=== PATIENT | male | born 1985 | race American Indian/Alaskan Native ===

== ENCOUNTER 2017-11-06 01:46 | Emergency (ER) | payer OTHER ==
[2017-11-06 02:44] LABS: Hemoglobin 11.8 gm/dl (11.8-15.2); Mean Corpuscular HGB Conc 35 % (32-34); Mean Corpuscular Hemoglobin 30 pg (28-32); Mean Corpuscular Volume 86 fl (84-94); Platelet Count 445 K/mm3 (140-440); Red Blood Count 3.93 M/mm3 (3.65-5.03); Red Cell Distribution Width 17.4 % (13.2-15.2)
[2017-11-06 02:53] LABS: Basophils # (Auto) 0.1 K/mm3 (0.0-0.1); Eosinophils # (Auto) 0.6 K/mm3 (0.0-0.4); Eosinophils % (Auto) 4.1 % (0.0-4.3); Monocytes # (Auto) 1.7 K/mm3 (0.0-0.8); Monocytes % (Auto) 11.3 % (0.0-7.3)
[2017-11-06 03:16] LABS: Lymphocytes # (Auto) 1.5 K/mm3 (1.2-5.4)
--- NOTE | 2017-11-06 06:58 | Emergency Department Report ---
HPI - General Chief Complaint: Sickle Cell Crisis Time Seen by Provider: 11/06/17 06:56 - HPI HPI: 5-year-old man with history of sickle cell disease, presents with generalized pain over the past 2 days, typical of his sickle cell disease with onset in the middle of the night between Sunday and Sunday morning, waking patient with discomfort.. There has not been any fever, and he has generalized pain, but his primary area of discomfort is in the right leg, mid abdomen, and central chest. He's had some coughing, no production of sputum, no fever, no dysuria. He gets sickle cell attacks infrequently, last significant episode was last year , but he did not seek treatment in the emergency department. His last emergency department visit here was 2 years ago. Patient's recent activities included a social gathering with friends for [employer] 2 days ago, and he ate barbecue, and had a couple of beers, but this has not been unusual for him, and is tolerating this without instigating attacks previously, though chart review shows that he had similar activity with his last emergency department episode. ED Past Medical Hx - Past Medical History Previous Medical History?: Yes Hx Sickle Cell Disease: Yes (?SC?) - Surgical History Past Surgical History?: No Additional Surgical History: Ankle surgery - Social History Smoking Status: Current Every Day Smoker Substance Use Type: None - Medications Home Medications: Home Medications Medication Instructions Recorded Confirmed Last Taken Type Famotidine [Pepcid] 20 mg PO DAILY #30 tablet 08/17/15 Unknown Rx HYDROcodone/APAP 10-325 [Hedley 1 each PO Q8HR PRN #20 tablet 08/17/15 Unknown Rx 10/325] Metoclopramide [Reglan] 10 mg PO TID PRN #20 tab 08/17/15 Unknown Rx HYDROcodone/APAP 10-325 [Hedley 1 each PO Q6HR PRN #30 tablet 11/06/17 Unknown Rx 10/325] Ondansetron [Zofran ODT TAB] 8 mg PO Q8HR PRN #10 tab.rapdis 11/06/17 Unknown Rx ED Review of Systems ROS: Stated complaint: SICKLE CELL CRISIS Other details as noted in HPI Constitutional: diaphoresis, fever (questionable fever) Eyes: denies: eye pain, eye discharge, vision change ENT: denies: ear pain, throat pain Respiratory: cough. denies: wheezing Cardiovascular: chest pain (hurt with deep breathing or movement or cough) Endocrine: denies: flushing, intolerance to cold, intolerance to heat Gastrointestinal: abdominal pain, nausea, vomiting. denies: diarrhea Genitourinary: denies: urgency, dysuria, frequency Musculoskeletal: back pain, arthralgia, myalgia. denies: joint swelling Skin: denies: rash Neurological: denies: headache, weakness, numbness, paresthesias Psychiatric: denies: anxiety, depression Hematological/Lymphatic: denies: easy bleeding Physical Exam - Physical Exam Vital Signs: Vital Signs 11/06/17 11/06/17 01:51 06:52 Temperature 98.1 F Pulse Rate 66 Respiratory 20 20 Rate Blood Pressure 123/82 O2 Sat by Pulse 97 100 Oximetry General: Gen.: Healthy adult male, in severe acute discomfort, is uncomfortable even at rest on stretcher, but vital signs remained stable. Physical Exam: HEENT: Pupils equal round and reactive, no gross jaundice, no facial droop, normocephalic, nontender, Neck: Supple, nontender, no jugular venous distention. Chest: Mild tenderness anterior chest, diffusely, soft tissue as well as costochondral areas on left, lungs are clear to auscultation bilaterally Abdomen: Nontender to palpation, abdomen is soft, bowel sounds are active, no rebound or guarding Extremities: Moderate diffuse tenderness to musculature of long bones of lower extremities predominantly, lesser of upper extremities, no joint tenderness, no effusions. Without rash or eruption. No petechiae, no ecchymosis Rectal: Deferred Genitourinary: Deferred Lymph: Without adenopathy Endocrine: Skin warm and dry, no diaphoresis ED Course Vital Signs 11/06/17 11/06/17 01:51 06:52 Temperature 98.1 F Pulse Rate 66 Respiratory 20 20 Rate Blood Pressure 123/82 O2 Sat by Pulse 97 100 Oximetry - Reevaluation(s) Reevaluation #1: 11/06/17 11:32 Patient only received minimal relief of discomfort with 2 doses of morphine, and rehydration normal saline, and pain control accelerated with hydromorphone. Reevaluation #2: 11/06/17 12:15 Patient significantly improved on hydromorphone, still has some mild abdominal bloating sensation in the epigastrium, but abdomen on repeat examination is fairly soft, and there is no localizing discomfort. Bowel sounds are normal. Chest remains clear, patient is considerably improved, much more comfortable, and talking easily. He feels he can manage rest of this pain at home, and is ready for discharge. ED Medical Decision Making - Lab Data Result diagrams: 11/06/17 02:18 11/06/17 07:26 - Medical Decision Making Patient was improved with rehydration, still had a fair amount of pain, but felt that he could manage at home, as he had no narcotics at home previously. Labs are stable, and we will place patient at rest, provide work excuse, and treat nausea and residual discomfort with ondansetron, and hydrocodone. Patient does not have regular physician, has been previously treated at [facility], recommended to find local physician, and have recheck in 3 or 4 days. Critical Care Time: No Critical care attestation.: If time is entered above; I have spent that time in minutes in the direct care of this critically ill patient, excluding procedure time. ED Disposition Clinical Impression: Sickle cell pain crisis Disposition: DC-01 TO HOME OR SELFCARE Is pt being admited?: No Does the pt Need Aspirin: No Condition: Stable Instructions: Sickle Cell Crisis (ED) Prescriptions: HYDROcodone/APAP 10-325 [Hedley 10/325] 1 each PO Q6HR PRN #30 tablet PRN Reason: Pain Ondansetron [Zofran ODT TAB] 8 mg PO Q8HR PRN #10 tab.rapdis PRN Reason: Nausea Referrals: PRIMARY CARE, [Primary Care Provider] - 3-5 Days
[2017-11-06] MEDS ORDERED: MORPHINE IV ONE (07:32)
[2017-11-06] MEDS ORDERED: MORPHINE IV PRN (07:33)
[2017-11-06] MEDS ORDERED: COMPAZINE IV ONE (07:33)
[2017-11-06] MEDS ORDERED: ZOFRAN IV ONE (07:33)
[2017-11-06] MEDS ORDERED: ZOFRAN ONE (07:38)
[2017-11-06] MEDS ORDERED: NACL 0.9% 1000 ML 1,000 ML ONE (07:38)
[2017-11-06] MEDS ORDERED: NACL 0.9% 1000 ML 1,000 ML IV ONE (07:48)
[2017-11-06 08:23] LABS: BUN/Creatinine Ratio 11; Blood Urea Nitrogen 8 mg/dL (9-20); Calcium 9.6 mg/dL (8.4-10.2); Hemolysis Index 12
--- NOTE | 2017-11-06 08:55 | XRay Report ---
AP CHEST: HISTORY: Sickle cell, chest pain AP view of the chest demonstrates a normal mediastinal and cardiac contour with clear lungs and normal bony and soft tissue structures. IMPRESSION: Unremarkable AP chest.
[2017-11-06 09:01] LABS: Albumin 4.5 g/dL (3.9-5); Bilirubin,Direct 0.3 mg/dL (0-0.2)
[2017-11-06] MEDS ORDERED: DILAUDID IV PRN (11:28)
[2017-11-06 11:36] VITALS: BP 100/52
== END 2017-11-06 12:40 | disposition home or self-care (01) ==
LOC: ED 01:46
DX: D57.219 Sickle-cell/Hb-C disease with crisis, unspecified (principal); F17.200 Nicotine dependence, unspecified, uncomplicated
CPT/HCPCS: 36415; 71045; 80048; 80074; 82140; 83690; 85025; 85045; 87040; 96361; 96374; 96375; 99283; J0780; J1170; J2270; J2405; J7030